=== PATIENT | male | born 1995 | race American Indian/Alaskan Native ===

== ENCOUNTER 2016-12-23 21:45 | Emergency (ER) | payer OTHER ==
[2016-12-23] MEDS ORDERED: Iopamidol 612 MG/ML 100 ML Bottle IVPUSH ONE (22:04)
[2016-12-23] MEDS ORDERED: LORazepam 2 MG/ML Syringe IVPUSH ONE (22:05)
[2016-12-23] MEDS ORDERED: Iopamidol 612 MG/ML 75 ML Bottle IVPUSH ONE (22:05)
[2016-12-23] MEDS ORDERED: HYDROmorphone 1 MG/ML Syringe IVPUSH ONE (22:06)
[2016-12-23 22:18] LABS: CHLORIDE,CL 99 mmol/L (101-111); SODIUM,NA 137 mmol/L (135-145)
[2016-12-23] MEDS ORDERED: Diphtheria,Pertussis(Acell),Tetanus Vaccine 0.5 ML SDV IM ONE (22:49)
[2016-12-23] MEDS ORDERED: Bacitracin Oint 1 GM U/D Packet TOP ONE (22:49)
[2016-12-23] MEDS ORDERED: Ondansetron 4 MG/2 ML SDV IV ONE (23:10)
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
== END 2016-12-23 23:55 | disposition home or self-care (01) ==
LOC: DL.ED 21:45
DX: S00.03XA Contusion of scalp, initial encounter (principal); S21.132A Puncture wound without foreign body of left front wall of thorax without penetration into thoracic cavity, initial encounter; S41.032A Puncture wound without foreign body of left shoulder, initial encounter; S31.139A Puncture wound of abdominal wall without foreign body, unspecified quadrant without penetration into peritoneal cavity, initial encounter; S31.119A Laceration without foreign body of abdominal wall, unspecified quadrant without penetration into peritoneal cavity, initial encounter; F17.210 Nicotine dependence, cigarettes, uncomplicated; Z88.6 Allergy status to analgesic agent; Z23 Encounter for immunization; Z98.890 Other specified postprocedural states; Y04.0XXA Assault by unarmed brawl or fight, initial encounter
CPT/HCPCS: 36415; 71010; 74177; 80053; 80305; 81001; 82150; 83690; 85025; 85610; 86850; 86900; 86901; 90471; 90715; 96374; 96375; 99284; 99285; G0480; J1170; J2060; J2405; Q9967

== ENCOUNTER 2019-11-10 10:03 | Emergency (ER) | payer OTHER ==
[2019-11-10 10:26] VITALS: BP 123/67; PULSE 74
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
[2019-11-10 10:49] LABS: ANION GAP 13.3; CHLORIDE,CL 103 mmol/L (101-111); SODIUM,NA 138 mmol/L (135-145)
[2019-11-10 10:53] LABS: ACETAMINOPHEN < 10 ug/mL
[2019-11-10] MEDS ORDERED: LORazepam 1 MG Tab PO ONE (10:56)
== END 2019-11-10 11:18 ==
LOC: DL.ED 10:03
DX: F30.2 Manic episode, severe with psychotic symptoms (principal); F17.210 Nicotine dependence, cigarettes, uncomplicated; Z88.6 Allergy status to analgesic agent; Z79.899 Other long term (current) drug therapy
CPT/HCPCS: 36415; 80053; 80305; 80320; 80329; 81003; 85025; 87081; 87430; 99284; A9270; 99283; G0480

== ENCOUNTER 2021-04-18 01:36 | Emergency (ER) | payer OTHER ==
[2021-04-18 02:01] LABS: AMPHETAMINES,URINE NEGATIVE (NEGATIVE); BARBITURATES,URINE NEGATIVE (NEGATIVE); BENZODIAZEPINE,URINE NEGATIVE (NEGATIVE); MDMA (ECSTASY), URINE NEGATIVE (NEGATIVE); METHADONE,URINE NEGATIVE (NEGATIVE); METHAMPHETAMINES,URINE POSITIVE (NEGATIVE); OPIATES,URINE NEGATIVE (NEGATIVE); OXYCODONE,URINE NEGATIVE (NEGATIVE); PHENCYCLIDINE,URINE NEGATIVE (NEGATIVE); TCA,URINE NEGATIVE (NEGATIVE)
[2021-04-18 02:12] VITALS: BP 116/85; PULSE 93
[2021-04-18 02:13] LABS: ANION GAP 14.8 mEq/L (7-13); CHLORIDE,CL 108 mmol/L (98-107); SODIUM,NA 145 mmol/L (136-145)
[2021-04-18] MEDS ORDERED: MVI, Adult with Vitamin K 10 ML, Folic Acid 1 MG, Thiamine 100 MG in Lactated Ringers 1... IV ONE ×4 (02:15)
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
== END 2021-04-18 02:51 ==
LOC: DL.ED 01:36
DX: F10.129 Alcohol abuse with intoxication, unspecified (principal); F19.10 Other psychoactive substance abuse, uncomplicated; Y90.8 Blood alcohol level of 240 mg/100 ml or more; Z72.0 Tobacco use; Z88.5 Allergy status to narcotic agent; Z79.899 Other long term (current) drug therapy
CPT/HCPCS: 36415; 80053; 80305; 80307; 81003; 85025; 96365; 99283; J3411; J7120; J3490

== ENCOUNTER 2022-08-28 10:26 | Emergency (ER) | payer MEDICAID, OTHER ==
[2022-08-28] MEDS ORDERED: Clindamycin HCl 150 MG Cap PO ONE (10:27)
[2022-08-28 10:46] VITALS: BP 128/83; PULSE 98
[2022-08-28] MEDS ORDERED: Clindamycin HCl 150 MG Cap ONE (10:54)
== END 2022-08-28 11:16 | disposition swing bed (61) ==
LOC: DL.ED 10:26
DX: S01.511A Laceration without foreign body of lip, initial encounter (principal); Z72.0 Tobacco use; Z88.5 Allergy status to narcotic agent; Y04.0XXA Assault by unarmed brawl or fight, initial encounter
CPT/HCPCS: 99284; A9270

== ENCOUNTER 2022-10-01 18:23 | Emergency (ER) | payer MEDICAID, OTHER ==
[2022-10-01 18:45] VITALS: BP 128/70; PULSE 119
== END 2022-10-01 18:46 | disposition home or self-care (01) ==
LOC: DL.ED 18:23
DX: S61.412A Laceration without foreign body of left hand, initial encounter (principal); S61.411A Laceration without foreign body of right hand, initial encounter; S05.11XA Contusion of eyeball and orbital tissues, right eye, initial encounter; Z88.5 Allergy status to narcotic agent; Y04.0XXA Assault by unarmed brawl or fight, initial encounter
CPT/HCPCS: 99284

== ENCOUNTER 2024-04-30 00:06 | Emergency (ER) | payer MEDICAID ==
[2024-04-30] MEDS: fentaNYL 100 MCG/2 ML SDV IVPUSH ONE (00:27)
[2024-04-30 02:13] VITALS: BP 135/90; PULSE 88
== END 2024-04-30 02:09 | disposition home or self-care (01) ==
LOC: DL.ED 00:06
DX: S42.021A Displaced fracture of shaft of right clavicle, initial encounter for closed fracture (principal); Z88.5 Allergy status to narcotic agent; Z79.899 Other long term (current) drug therapy; W22.8XXA Striking against or struck by other objects, initial encounter
CPT/HCPCS: 73030; 96374; 99283; 99284; J3010

== ENCOUNTER 2024-07-28 22:40 | Emergency (ER) | payer BC, MEDICAID ==
[2024-07-28] MEDS ORDERED: Sodium Chloride 0.9% 10 ML Syringe FLUSH PRN (22:59)
[2024-07-28 23:06] LABS: BASOPHILS PERCENT AUTO 0.3 % (0.0-1.0); EOSINOPHILS PERCENT AUTO 0.3 % (1.0-3.0); HEMATOCRIT 41.7 % (40.0-54.0); HEMOGLOBIN 13.9 g/dL (14.0-18.0); LYMPHOCYTES PERCENT AUTO 21.2 % (20.5-50.1); MEAN CORPUSCULAR HGB CONC 33.3 g/dL (33.0-35.0); MEAN CORPUSCULAR VOLUME 92.9 fL (80-100); MONOCYTES PERCENT AUTO 9.9 % (2-8); NEUTROPHILS PERCENT AUTO 68.3 % (42.2-75.2); PLATELET COUNT,PLT 293 10^3/uL (150-450); RED BLOOD CELL COUNT 4.49 10^6/uL (4.6-6.2); WHITE BLOOD CELL COUNT,WBC 7.8 10^3/uL (5.0-10.0)
[2024-07-28 23:11] VITALS: BP 118/72; PULSE 100
[2024-07-28 23:17] LABS: A/G RATIO 1.1; ACETAMINOPHEN 0 ug/mL (10-30 (Therapeutic)); ALANINE AMINOTRANSFERASE,ALT 99 U/L (16-63); ALBUMIN 3.9 g/dL (3.4-5.0); ALKALINE PHOSPHATASE 87 U/L (46-116); ANION GAP 14.7 mEq/L (7-13); ASPARTATE AMNIOTRANSFERASE,AST 52 U/L (15-37); BILIRUBIN TOTAL 0.7 mg/dL (0.2-1.0); BLOOD UREA NITROGEN,BUN 22 mg/dL (7-18); CALCIUM 9.4 mg/dL (8.5-10.1); CARBON DIOXIDE,CO2 24 mmol/L (21-32); CHLORIDE,CL 103 mmol/L (98-107); ESTIMATED GFR 93 mL/min (>=60); ETHANOL BLOOD MEDICAL < 3 mg/dL (0); GLUCOSE RANDOM 132 mg/dL (70-99); POTASSIUM,K 3.7 mmol/L (3.5-5.1); PROTEIN TOTAL,TP 7.6 g/dL (6.4-8.2); SODIUM,NA 138 mmol/L (136-145)
== END 2024-07-29 05:55 | disposition home or self-care (01) ==
LOC: DL.ED 22:40
DX: T43.591A Poisoning by other antipsychotics and neuroleptics, accidental (unintentional), initial encounter (principal); Z90.89 Acquired absence of other organs; Z88.5 Allergy status to narcotic agent; Z79.899 Other long term (current) drug therapy
CPT/HCPCS: 36415; 80053; 80143; 80179; 80307; 85025; 99284